=== PATIENT | male | born 1965 | race Caucasian/White ===

== ENCOUNTER 2017-12-13 10:46 | Inpatient (IN) | payer SELFPAY ==
[~2017-12-13] VITALS: Ht 167.6 cm; Wt 57.5 kg
[~2017-12-13 10:46] MED LIST: LORT5TAB PO; Z.0.NO CURRENT MEDS
[2017-12-13] MEDS ORDERED: IOHEXOL 350 MG/ML 10 ML VIAL (for RAD DIAG) IVCONTRAST ONE (10:47)
[2017-12-13 10:51] VITALS: BP 146/68; PULSE 92; RESP 16; TEMP 99; O2SAT 96
[2017-12-13 11:05] VITALS: BP 155/72; PULSE 95; RESP 18; O2SAT 95
[2017-12-13] MEDS ORDERED: SODIUM CHLOR 0.9% 1000 ML INJ 1,000 ML IV SCH (11:17)
--- NOTE | 2017-12-13 11:28 | PD ---
HPI Chief Complaint: General Weakness Time Seen by Provider: 11:06 Travel History International Travel<30 days: No Contact w/Intl Traveler<30days: No Traveled to known affect area: No History of Present Illness HPI 52-year-old male presents emergency department with 1 month history of increased fatigue, nausea, occasional vomiting, and increased somnolence, and generalized weakness. Patient states a 20 pound weight loss over the past month. Patient denies significant fever, chills, changes in bowel or bladder, or significant abdominal pain. Patient is a long-term smoker but denies significant increased cough or hemoptysis. 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 He states history of lymphoma, again treated in [facility]. Patient is somewhat vague in his symptoms. He denies headache or upper respiratory symptoms. He denies increased shortness of breath with exertion. He denies chest pain. He denies hemoptysis. He denies heartburn. He denies significant pain. He has no known drug allergies. PFSH Past Medical History Medical History: Denies Significant Hx Diminished Hearing: No Tetanus Vaccination: Unknown Influenza Vaccination: No Past Surgical History Surgical History: No Previous Surgery Social History Alcohol Use: Yes (have not drank in a couple of months) Tobacco Use: Yes Substance Use: No Allergies-Medications (Allergen,Severity, Reaction): Coded Allergies: No Known Allergies (Verified Adverse Reaction, Unknown, 12/13/17) Reported Meds & Prescriptions Reported Meds & Active Scripts Active No Active Prescriptions or Reported Medications Review of Systems Except as stated in HPI: all other systems reviewed are Neg General / Constitutional: No: Fever, Chills Eyes: No: Visual changes HENT: No: Headaches, Vertigo, Lightheadedness, Sore Throat, Rhinitis, Rhinorrhea, Congestion, Nosebleed, Neck Stiffness, Neck Pain, Dental Difficulties, Earache Cardiovascular: No: Chest Pain or Discomfort, Palpitations, Irregular Rhythm, Tachycardia, Diaphoresis, Syncope, Dyspnea on exertion, Varicosities, Claudication Respiratory: Positive: Cough, No: Shortness of Breath, Wheezing (Chronic), Orthopnea, Hemoptysis, Night Sweats, Pleuritic Pain Gastrointestinal: Positive: Nausea, Vomiting, Loss of Appetite, No: Diarrhea ( See history of present illness), Abdominal Pain, Hematemesis, Hematochezia, Constipation, Changes in Bowel Habits, Indigestion, Dysphagia, Other Genitourinary: No: Urgency, Frequency, Dysuria Musculoskeletal: No: Myalgias, Arthralgias, Limited ROM, Pain Skin: No Rash Neurologic: Positive: Weakness (Increased generalized weakness and increased somnolence for the past month) Psychiatric: No: Depression Endocrine: No: Heat Intolerance, Cold Intolerance, Polyuria, Polydipsia Hematologic/Lymphatic: No: Easy Bruising Physical Exam Narrative GENERAL: Patient appears in no obvious distress. SKIN: Warm and dry. Normal color. Normal turgor. HEAD: Atraumatic. Normocephalic. EYES: Pupils equal and round. No scleral icterus. No injection or drainage. ENT: No nasal bleeding or discharge. Mucous membranes pink and moist. Pharynx is clear. Airways patent. NECK: Trachea midline. Supple and nontender. No palpable thyroid. CARDIOVASCULAR: Regular rate and rhythm. RESPIRATORY: No accessory muscle use. Clear to auscultation. Breath sounds equal bilaterally. GASTROINTESTINAL: Abdomen soft, non-tender, nondistended. Hepatic and splenic margins not palpable. No palpable masses. MUSCULOSKELETAL: Extremities without clubbing, cyanosis, or edema. No obvious deformities. NEUROLOGICAL: Awake and alert. No obvious cranial nerve deficits. Motor grossly within normal limits. Five out of 5 muscle strength in the arms and legs. Normal speech. PSYCHIATRIC: Appropriate mood and affect; insight and judgment normal. Data Data Last Documented VS Vital Signs Date Time Temp Pulse Resp B/P (MAP) Pulse Ox O2 Delivery O2 Flow Rate FiO2 12/13/17 15:07 89 18 146/85 (105) 99 Room Air 12/13/17 10:51 99.0 Orders Orders Complete Blood Count With Diff (12/13/17 11:17) Comprehensive Metabolic Panel (12/13/17 11:17) Lipase (12/13/17 11:17) Prothrombin Time / Inr (Pt) (12/13/17 11:17) Act Partial Throm Time (Ptt) (12/13/17 11:17) Urinalysis - C+S If Indicated (12/13/17 11:17) Iv Access Insert/Monitor (12/13/17 11:17) Ecg Monitoring (12/13/17 11:17) Oximetry (12/13/17 11:17) Sodium Chlor 0.9% 1000 Ml Inj (Ns 1000 M (12/13/17 11:17) Sodium Chloride 0.9% Flush (Ns Flush) (12/13/17 11:30) Electrocardiogram (12/13/17 11:17) Chest, Single Ap (12/13/17 11:17) Magnesium (Mg) (12/13/17 11:17) Thyroid Stimulating Hormone (12/13/17 11:17) Ct Thorax/ Chest W Iv Contrast (12/13/17 ) Iohexol 350 Inj (Omnipaque 350 Inj) (12/13/17 10:47) Ceftriaxone Inj (Rocephin Inj) (12/13/17 15:00) Azithromycin (Zithromax) (12/13/17 15:00) Sputum Culture And Gram Stain (12/13/17 14:50) Labs Laboratory Tests Test 12/13/17 11:40 12/13/17 13:10 White Blood Count 9.9 TH/MM3 Red Blood Count 4.84 MIL/MM3 Hemoglobin 15.6 GM/DL Hematocrit 45.7 % Mean Corpuscular Volume 94.4 FL Mean Corpuscular Hemoglobin 32.3 PG Mean Corpuscular Hemoglobin Concent 34.2 % Red Cell Distribution Width 13.3 % Platelet Count 334 TH/MM3 Mean Platelet Volume 6.6 FL Neutrophils (%) (Auto) 68.7 % Lymphocytes (%) (Auto) 15.7 % Monocytes (%) (Auto) 13.4 % Eosinophils (%) (Auto) 1.2 % Basophils (%) (Auto) 1.0 % Neutrophils # (Auto) 6.8 TH/MM3 Lymphocytes # (Auto) 1.6 TH/MM3 Monocytes # (Auto) 1.3 TH/MM3 Eosinophils # (Auto) 0.1 TH/MM3 Basophils # (Auto) 0.1 TH/MM3 CBC Comment DIFF FINAL Differential Comment Prothrombin Time 12.6 SEC Prothromb Time International Ratio 1.2 RATIO Activated Partial Thromboplast Time 27.1 SEC Blood Urea Nitrogen 9 MG/DL Creatinine 0.75 MG/DL Random Glucose 100 MG/DL Total Protein 9.3 GM/DL Albumin 2.7 GM/DL Calcium Level 8.8 MG/DL Magnesium Level 1.9 MG/DL Alkaline Phosphatase 144 U/L Aspartate Amino Transf (AST/SGOT) 57 U/L Alanine Aminotransferase (ALT/SGPT) 29 U/L Total Bilirubin 1.0 MG/DL Sodium Level 132 MEQ/L Potassium Level 4.2 MEQ/L Chloride Level 97 MEQ/L Carbon Dioxide Level 26.4 MEQ/L Anion Gap 9 MEQ/L Estimat Glomerular Filtration Rate 109 ML/MIN Lipase 278 U/L Thyroid Stimulating Hormone 3rd Gen 4.610 uIU/ML Urine Color YELLOW Urine Turbidity CLEAR Urine pH 5.0 Urine Specific [place] 1.016 Urine Protein NEG mg/dL Urine Glucose (UA) NEG mg/dL Urine Ketones NEG mg/dL Urine Occult Blood NEG Urine Nitrite NEG Urine Bilirubin NEG Urine Urobilinogen 2.0 mg/dL Urine Leukocyte Esterase NEG Urine RBC LESS THAN 1 /hpf Urine WBC 1 /hpf Urine Mucus FEW /lpf Microscopic Urinalysis Comment CULT NOT INDICATED MDM Medical Decision Making Medical Screen Exam Complete: Yes Emergency Medical Condition: Yes Differential Diagnosis Generalized weakness. Weight loss. Type 2 diabetes. Lymphoma. Cancer. Viral syndrome. Narrative Course Patient appears medically stable at time of exam. Labs ordered including CBC, CMP, lipase, magnesium, coagulation studies, TSH, and urinalysis Chest x-ray is ordered. IV access is obtained and the patient is given 1000 mL of normal saline bolus. EKG shows normal sinus rhythm. CBC is unremarkable. Coagulation study shows an INR of 1.2, PT is 12.6 CMP significant for sodium 132, chloride 97. BUN/creatinine are normal. AST slightly elevated 57, alk phos is 144, total protein is 9.3. Albumin is 2.7. Lipase is normal at 278. TSH is elevated at 4.61. Urinalysis is unremarkable. Chest x-ray shows: Small right pleural effusion with associated compressive atelectasis and/or consolidation right lung base, as well as nonspecific patchy nodular opacities located in left upper lobe. These will be further characterized on the schedule CT scan chest. CT of the chest with IV contrast shows: 1. Multiple focal areas of nodularity in the upper lungs bilaterally with some cavitation. Given this bilateral appearance when is becomes sharp for inflammatory/infectious processes. 2. Mild to moderate right pleural effusion. 3. Hepatic steatosis. Patient discussed with Dr. Zhong who recommends admitting the patient for pneumonia, and rule out of TB. 1 g of Rocephin IV and 500 mg azithromycin p.o. was given. Findings and plan is discussed with the patient who agrees for admission. Calls placed to hospitalist for admission. Sputum test is ordered Diagnosis Primary Impression: Pneumonia Qualified Codes: J18.9 - Pneumonia, unspecified organism Additional Impressions: Cavitary lesion of lung Recent weight loss Admitting Information Admitting Physician Requests: Admit Scripts No Active Prescriptions or Reported Meds Condition: Nahid Fernandez Dec 13, 2017 11:28
[2017-12-13] MEDS ORDERED: SODIUM CHLORIDE 0.9% FLUSH 10 ML FLUSH IV FLUSH PRN ×3 (11:30→15:45)
[2017-12-13 11:42] VITALS: O2SAT 99
--- NOTE | 2017-12-13 12:00 | RADRPT ---
EXAM DATE: 12/13/2017 11:43 AM EDT AGE/SEX: 52 years / Male INDICATIONS: Weakness, tired, loss of weight CLINICAL DATA: This is the patient's initial encounter. Patient reports that signs and symptoms have been present for 3 weeks and indicates a pain score of 0/10. MEDICAL/SURGICAL HISTORY: . smokes None. COMPARISON: No prior exams available for comparison. FINDINGS: 2 portable AP views of the chest demonstrate a normal-sized cardiac silhouette. Patchy nodular opacit ies are present in the left upper lobe. There is a right basilar pleural-parenchymal opacity. No pneu mothorax is present. Bones demonstrate no acute finding. CONCLUSION: 1. Small right pleural effusion with associated compressive atelectasis and/or consolidation at the right lung base. 2. Nonspecific patchy nodular opacities are located in the left upper lobe. These can be further wayne racterized on the currently scheduled chest CT. Electronically signed by: Wallace Sherman MD 12/13/2017 11:58 AM EDT
[2017-12-13 12:02] LABS: AUTOMATED NEUTROPHIL # 6.8 TH/MM3 (1.8-7.7); BASOPHIL # 0.1 TH/MM3 (0-0.2); EOSINOPHIL # 0.1 TH/MM3 (0-0.4); EOSINOPHIL % 1.2 % (0.0-4.0); HEMATOCRIT 45.7 % (39.0-51.0); HEMOGLOBIN 15.6 GM/DL (13.0-17.0); LYMPH % 15.7 % (9.0-44.0); LYMPHOCYTE # 1.6 TH/MM3 (1.0-4.8); MEAN CELL VOLUME 94.4 FL (80.0-100.0); MEAN CORPUSCULAR HEMOGLOBIN 32.3 PG (27.0-34.0); MEAN CORPUSCULAR HGB CONC 34.2 % (32.0-36.0); MEAN PLATELET VOLUME 6.6 FL (7.0-11.0); MONO % 13.4 % (0.0-8.0); MONOCYTE # 1.3 TH/MM3 (0-0.9); NEUT % 68.7 % (16.0-70.0); PLATELET COUNT 334 TH/MM3 (150-450); RED BLOOD COUNT 4.84 MIL/MM3 (4.50-5.90); RED CELL DISTRIBUTION WIDTH 13.3 % (11.6-17.2); WHITE BLOOD COUNT 9.9 TH/MM3 (4.0-11.0)
[2017-12-13 12:11] LABS: INTERNATIONAL NORMALIZED RATIO 1.2 RATIO; PROTHROMBIN TIME - PATIENT 12.6 SEC (9.8-11.6)
[2017-12-13 12:25] LABS: ALBUMIN 2.7 GM/DL (3.4-5.0); ALT (GPT) 29 U/L (12-78); AST (GOT) 57 U/L (15-37); BICARBONATE 26.4 MEQ/L (21.0-32.0); BLOOD UREA NITROGEN 9 MG/DL (7-18); CALCIUM 8.8 MG/DL (8.5-10.1); CHLORIDE 97 MEQ/L (98-107); CREATININE 0.75 MG/DL (0.60-1.30); GLOMERULAR FILTRATION RATE 109 ML/MIN (>89); GLUCOSE,RANDOM 100 MG/DL (74-106); MAGNESIUM 1.9 MG/DL (1.5-2.5); SODIUM (NA) 132 MEQ/L (136-145)
[2017-12-13 12:26] LABS: ALKALINE PHOSPHATASE 144 U/L (45-117); TOTAL PROTEIN 9.3 GM/DL (6.4-8.2)
[2017-12-13 13:51] LABS: BILIRUBIN, URINE NEG (NEG); BLOOD, URINE NEG (NEG); GLUCOSE,URINE NEG (NEG); KETONE, URINE NEG (NEG); MUCUS URINE FEW /lpf (OCC); NITRITE,URINE NEG (NEG); URINE COLOR YELLOW (YELLW/STRAW); URINE LEUKOCYTE ESTERASE NEG (NEG)
--- NOTE | 2017-12-13 14:39 | RADRPT ---
EXAM DATE: 12/13/2017 1:56 PM EDT AGE/SEX: 52 years / Male INDICATIONS: Dizzy, nausea vomiting, general weakness, weight loss, effusion seen on x-ray. CLINICAL DATA: This is the patient's initial encounter. Patient reports that signs and symptoms have been present for 2 months and indicates a pain score of 0/10. MEDICAL/SURGICAL HISTORY: None. None. RADIATION DOSE: 4.59 CTDI (mGy) COMPARISON: [facility] [place], CHEST SINGLE AP, 12/13/2017. . TECHNIQUE: Multiple contiguous axial images were obtained through the chest during bolus infusion of 66 ml Omnipaque 350 (iohexol) nonionic water-soluble contrast as a single exam dose. Images were obtained in suspended respiration using multiple row detector helical technique. Using automated exp osure control and adjustment of the mA and/or kV according to patient size, radiation dose was kept a s low as reasonably achievable to obtain optimal diagnostic quality images. DICOM format image data is available electronically for review and comparison. FINDINGS: Lungs: There are multiple masses in the upper lobes bilaterally. Some of these are cavitary. This in cludes a 2.4 cm mass in the posterior right upper lobe and a 1.9 cm mass in the posterior left upper lobe. There is increased density at the subpleural right base likely related to atelectasis. Mediastinum: There are small lymph nodes seen throughout the mediastinum. Enlarged adenopathy is not clearly appreciated. Pleurae: There is a mild to moderate right pleural effusion. No left effusion is seen. Axillae: Unremarkable. Bony Structures: Unremarkable. Miscellaneous: The examination was extended to include the upper abdomen, and both adrenal glands ar e normal in size and configuration. There is hepatic steatosis. There appears to be a possible mild h iatal hernia. CONCLUSION: 1. Multiple focal areas of nodularity in the upper lungs bilaterally with some cavitation. Given thi s bilateral appearance when is becomes sharp for inflammatory/infectious processes. 2. Mild to moderate right pleural effusion. 3. Hepatic steatosis. Electronically signed by: Wallace Sullivan MD 12/13/2017 2:38 PM EDT
[2017-12-13] MEDS ORDERED: AZITHROMYCIN 250 MG TAB PO ONE (15:00)
[2017-12-13] MEDS ORDERED: cefTRIAXone INJ 1,000 MG in SODIUM CHLORIDE 0.9% INJ 100 ML IV ONE (15:00)
[2017-12-13 15:07] VITALS: BP 146/85; PULSE 89; RESP 18; O2SAT 99
[2017-12-13] MEDS ORDERED: NALOXONE HCL 0.4 MG/ML AMP IV PUSH PRN (15:45)
[2017-12-13] MEDS ORDERED: ACETAMINOPHEN 325 MG TAB PO PRN ×2 (15:45)
[2017-12-13] MEDS ORDERED: SENNOSIDES 8.6 MG TAB PO PRN (15:45)
[2017-12-13] MEDS ORDERED: METOCLOPRAMIDE HCL 10 MG/2 ML VIAL IV PUSH PRN (15:45)
[2017-12-13] MEDS ORDERED: BISACODYL 10 MG SUPP RECTAL PRN (15:45)
[2017-12-13] MEDS ORDERED: MAGNESIUM HYDROXIDE SUSP 30 ML CUP PO PRN (15:45)
[2017-12-13] MEDS ORDERED: MORPHINE SULFATE 4 MG/ML INJ IV PUSH PRN ×3 (15:45)
[2017-12-13] MEDS ORDERED: ONDANSETRON ODT 4 MG TAB PO PRN (15:45)
[2017-12-13] MEDS ORDERED: oxyCODONE/ACETAMINOPHEN 10 MG/325 MG TAB PO PRN (15:45)
[2017-12-13] MEDS ORDERED: RESP: ALBUTEROL 2.5 MG/IPRATROPIUM 0.5 MG NEB (PRN) INH (15:45)
[2017-12-13] MEDS ORDERED: oxyCODONE/ACETAMINOPHEN 5 MG/325 MG TAB PO PRN (15:45)
[2017-12-13] MEDS ORDERED: LACTULOSE SYRUP 20 GM/30 ML CUP PO PRN (15:45)
[2017-12-13] MEDS ORDERED: NICOTINE 14 MG/24 HR PATCH T-DERMAL ONE (16:45)
[2017-12-13] MEDS: SODIUM CHLOR 0.9% 1000 ML INJ 1,000 ML IV SCH (16:56)
[2017-12-13] MEDS: ENOXAPARIN SODIUM 40 MG/0.4 ML SYRINGE SQ SCH ×2 (16:59→17:00)
[2017-12-13] MEDS: methylPREDNISolone SOD SUCC 40 MG/1 ML VIAL IV PUSH SCH (16:59)
--- NOTE | 2017-12-13 16:59 | HHI.HP ---
[facility] No Primary Care Physician Admission Diagnosis Pneumonia/Fatigue/Wgt Loss/R/O TB Diagnoses: (1) Tobacco abuse Diagnosis: Secondary (2) Cavitary lesion of lung (3) Recent weight loss Diagnosis: Secondary (4) Pneumonia Diagnosis: Principal Chief Complaint: Generalized weakness Travel History International Travel<30 Days: No Contact w/Intl Traveler <30 Da: No Traveled to Known Affected Are: No History of Present Illness Patient is a 52-year-old gentleman who presented to the emergency department today with a one-month history of increasing fatigue, nausea, occasional vomiting and increased somnolence as well as generalized weakness. Patient states that he had about a 20 pound weight loss over the past month. Patient denies any significant fevers, denies any chills denies any changes in bowel or bladder habit or any significant abdominal pain. Patient states he smokes but denies any significant increased cough or hemoptysis. 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 He states he has a history of lymphoma treated in [facility]. Denies headache or upper respiratory symptoms he denied shortness of breath on exertion denies any chest pain he denies any hemoptysis he denies any heartburn. He denies any significant pain he denies any drug allergies. Patient will be admitted. Will continue on Rocephin and Zithromax as well as Mucinex and DuoNeb's and steroids. Will also start him on acid-fast bacillus sputum's 3 and try and obtain records from some treatment he states in seminal Review of Systems Constitutional: COMPLAINS OF: Fatigue, Weight loss, DENIES: Diaphoretic episodes, Fever, Weight gain, Chills, Dizziness, Change in appetite, Night Sweats Endocrine: DENIES: Heat/cold intolerance, Polydipsia, Polyuria, Polyphagia Eyes: DENIES: Blurred vision, Diplopia, Eye inflammation, Eye pain, Vision loss , Photosensitivity, Double Vision Ears, nose, mouth, throat: DENIES: Tinnitus, Hearing loss, Vertigo, Nasal discharge, Oral lesions, Throat pain, Hoarseness, Ear Pain, Running Nose, Epistaxis, Sinus Pain, Toothache, Odynophagia Respiratory: COMPLAINS OF: Cough, Sputum production, DENIES: Apneas, Snoring, Wheezing, Hemoptysis, Shortness of breath Cardiovascular: DENIES: Chest pain, Palpitations, Syncope, Dyspnea on Exertion , PND, Lower Extremity Edema, Orthopnea, Claudication Gastrointestinal: DENIES: Abdominal pain, Black stools, Bloody stools, Constipation, Diarrhea, Nausea, Vomiting, Difficulty Swallowing, Anorexia Genitourinary: DENIES: Sexual dysfunction, Urinary frequency, Urinary incontinence, Urgency, Hematuria, Dysuria, Nocturia, Penile Discharge, Testicular Pain, Testicular Swelling Musculoskeletal: DENIES: Joint pain, Muscle aches, Stiffness, Joint Swelling, Back pain, Neck pain Integumentary: DENIES: Abnormal pigmentation, Nail changes, Pruritus, Rash Hematologic/lymphatic: DENIES: Bruising, Lymphadenopathy Immunologic/allergic: DENIES: Eczema, Urticaria Neurologic: DENIES: Abnormal gait, Headache, Localized weakness, Paresthesias, Seizures, Speech Problems, Tremor, Poor Balance Psychiatric: DENIES: Anxiety, Confusion, Mood changes, Depression, Hallucinations, Agitation, Suicidal Ideation, Homicidal Ideation, Delusions Except as stated in HPI: all other systems reviewed are Neg Past Family Social History Past Medical History Lymphoma by history History of benzene poisoning Tobacco abuse Past Surgical History Denies Reported Medications Reported Meds & Active Scripts Active No Active Prescriptions or Reported Medications Allergies: Coded Allergies: No Known Allergies (Verified Allergy, Unknown, 12/13/17) Active Ordered Medications Current Medications Sodium Chloride 1,000 ml @ 1,000 mls/hr Q1H IV Last administered on 12/13/17at 11:44; Start 12/13/17 at 11:17; Stop 12/13/17 at 12:16; Status DC Sodium Chloride (NS Flush) 2 ml UNSCH PRN IV FLUSH FLUSH AFTER USING IV ACCESS Last administered on 12/13/17at 15:25; Start 12/13/17 at 11:30; Stop 12/13/17 at 16:14; Status DC Iohexol (Omnipaque 350 Inj) 66 ml STK-MED ONCE IVCONTRAST Last administered on 12/13/17at 10:47; Start 12/13/17 at 10:47; Stop 12/13/17 at 13:51; Status DC Ceftriaxone Sodium 1000 mg/ Sodium Chloride 100 ml @ 200 mls/hr ONCE ONCE IV Last administered on 12/13/17at 15:23; Start 12/13/17 at 15:00; Stop 12/13/17 at 15:29; Status DC Azithromycin (Zithromax) 500 mg ONCE ONCE PO Last administered on 12/13/17at 15 :25; Start 12/13/17 at 15:00; Stop 12/13/17 at 15:01; Status DC Sodium Chloride 1,000 ml @ 100 mls/hr Q10H IV ; Start 12/13/17 at 16:00 Sodium Chloride (NS Flush) 2 ml UNSCH PRN IV FLUSH FLUSH AFTER USING IV ACCESS ; Start 12/13/17 at 15:45; Stop 12/13/17 at 16:14; Status DC Sodium Chloride (NS Flush) 2 ml BID IV FLUSH ; Start 12/13/17 at 21:00; Stop at 21:00; Status DC Acetaminophen (Tylenol) 650 mg Q4H PRN PO TEMP > 100.4; Start 12/13/17 at 15:45 Ondansetron HCl (Zofran Odt) 4 mg Q6H PRN PO NAUSEA OR VOMITING; Start at 15:45 Metoclopramide HCl (Reglan Inj) 5 mg Q6H PRN IV PUSH NAUSEA OR VOMITING; Start 12/13/17 at 15:45 Enoxaparin Sodium (Lovenox Inj) 40 mg Q24H SQ ; Start 12/13/17 at 17:00 Acetaminophen (Tylenol) 650 mg Q6H PRN PO PAIN SCALE 1 TO 2; Start 12/13/17 at 15:45 Oxycodone/ Acetaminophen (Percocet 5-325 Mg) 1 tab Q6H PRN PO PAIN SCALE 3 TO 5; Start 12/13/17 at 15:45 Oxycodone/ Acetaminophen (Percocet 10-325 Mg) 1 tab Q6H PRN PO PAIN SCALE 6 TO 10; Start 12/13/17 at 15:45 Morphine Sulfate (Morphine Inj) 2 mg Q3H PRN IV PUSH Pain 3-5; if unable to take PO; Start 12/13/17 at 15:45 Morphine Sulfate (Morphine Inj) 4 mg Q3H PRN IV PUSH Pain 6-10;if unable to take PO; Start 12/13/17 at 15:45 Morphine Sulfate (Morphine Inj) 4 mg Q3H PRN IV PUSH BREAKTHROUGH PAIN; Start 12/13/17 at 15:45 Naloxone HCl (Narcan Inj) 0.4 mg UNSCH PRN IV PUSH SEE LABEL COMMENTS; Start at 15:45 Senna/Docusate Sodium (Cora-Colace) 1 tab BID PO ; Start 12/13/17 at 21:00 Magnesium Hydroxide (Milk Of Magnesia Liq) 30 ml Q12H PRN PO Mild constipation ; Start 12/13/17 at 15:45 Sennosides (Senokot) 17.2 mg Q12H PRN PO Moderate constipation; Start 12/13/17 at 15:45 Bisacodyl (Dulcolax Supp) 10 mg DAILY PRN RECTAL SEVERE CONSITIPATION; Start at 15:45 Lactulose (Lactulose Liq) 30 ml DAILY PRN PO SEVERE CONSITIPATION; Start at 15:45 Sodium Chloride (NS Flush) 2 ml UNSCH PRN IV FLUSH FLUSH AFTER USING IV ACCESS ; Start 12/13/17 at 15:45 Sodium Chloride (NS Flush) 2 ml BID IV FLUSH ; Start 12/13/17 at 21:00 Ceftriaxone Sodium 1000 mg/ Sodium Chloride 100 ml @ 200 mls/hr Q24H IV ; Start 12/14/17 at 14:00 Azithromycin 500 mg/Sodium Chloride 250 ml @ 250 mls/hr Q24H IV ; Start at 15:00 Tuberculin PPD (Ppd Inj) 5 units ONCE ONCE I-DERMAL ; Start 12/13/17 at 17:00; Stop 12/13/17 at 17:01 Miscellaneous Information (Skin Test Result) 1 Q24H OTHER ; Start 12/14/17 at 17 :00; Stop 12/17/17 at 16:59 Albuterol/ Ipratropium (Duoneb Neb) 1 ampule Q6HR NEB INH ; Start 12/13/17 at 16:00 Albuterol/ Ipratropium (Duoneb Neb) 1 ampule Q4HR NEB PRN INH SHORTNESS OF BREATH; Start 12/13/17 at 15:45 Methylprednisolone Sodium Succinate (SoluMEDROL INJ) 40 mg Q12H IV PUSH ; Start 12/13/17 at 17:00 Guaifenesin (Mucinex Er) 600 mg Q12H PO ; Start 12/13/17 at 18:00 Famotidine (Pepcid) 20 mg BID PO ; Start 12/13/17 at 21:00 Nicotine (Habitrol 14 Mg Patch.24 Hr) 1 patch ONCE ONCE T-DERMAL ; Start at 16:45; Stop 12/13/17 at 16:46; Status UNV Nicotine (Habitrol 14 Mg Patch.24 Hr) 1 patch DAILY T-DERMAL ; Start 12/14/17 at 09:00; Status UNV Miscellaneous Information 1 DAILY T-DERMAL ; Start 12/14/17 at 09:00; Status UNV Family History Denies Social History Smokes about a pack a day has been doing that many years History of alcohol abuse states he has not drank in a couple months Denies any illicits Physical Exam Vital Signs Vital Signs Date Time Temp Pulse Resp B/P (MAP) Pulse Ox O2 Delivery O2 Flow Rate FiO2 12/13/17 15:07 89 18 146/85 (105) 99 Room Air 12/13/17 11:42 99 Room Air 12/13/17 11:05 95 18 155/72 (99) 95 Room Air 12/13/17 11:03 95 Room Air 12/13/17 10:51 99.0 92 16 146/68 (94) 96 Physical Exam GENERAL: This is a well-nourished, well-developed patient, in no apparent distress. SKIN: No rashes, ecchymoses or lesions. Cool and dry. Multiple tattoos HEAD: Atraumatic. Normocephalic. No temporal or scalp tenderness. EYES: Pupils equal round and reactive. Extraocular motions intact. No scleral icterus. No injection or drainage. ENT: Nose without bleeding, purulent drainage or septal hematoma. Throat without erythema, tonsillar hypertrophy or exudate. Uvula midline. Airway patent. NECK: Trachea midline. No JVD or lymphadenopathy. Supple, nontender, no meningeal signs. CARDIOVASCULAR: Regular rate and rhythm without murmurs, gallops, or rubs. RESPIRATORY: Few scattered rhonchi bilaterally. Breath sounds equal bilaterally. No wheezes, rales, or rhonchi. GASTROINTESTINAL: Abdomen soft, non-tender, nondistended. No hepato-splenomegaly , or palpable masses. No guarding. MUSCULOSKELETAL: Extremities without clubbing, cyanosis, or edema. No joint tenderness, effusion, or edema noted. No calf tenderness. Negative Homans sign bilaterally. NEUROLOGICAL: Awake and alert. Cranial nerves II through XII intact. Motor and sensory grossly within normal limits. Five out of 5 muscle strength in all muscle groups. Normal speech. Insight and judgment is good Mood and behavior is somewhat appropriate Laboratory Laboratory Tests Test 12/13/17 11:40 12/13/17 13:10 White Blood Count 9.9 Red Blood Count 4.84 Hemoglobin 15.6 Hematocrit 45.7 Mean Corpuscular Volume 94.4 Mean Corpuscular Hemoglobin 32.3 Mean Corpuscular Hemoglobin Concent 34.2 Red Cell Distribution Width 13.3 Platelet Count 334 Mean Platelet Volume 6.6 Neutrophils (%) (Auto) 68.7 Lymphocytes (%) (Auto) 15.7 Monocytes (%) (Auto) 13.4 Eosinophils (%) (Auto) 1.2 Basophils (%) (Auto) 1.0 Neutrophils # (Auto) 6.8 Lymphocytes # (Auto) 1.6 Monocytes # (Auto) 1.3 Eosinophils # (Auto) 0.1 Basophils # (Auto) 0.1 CBC Comment DIFF FINAL Differential Comment Prothrombin Time 12.6 Prothromb Time International Ratio 1.2 Activated Partial Thromboplast Time 27.1 Blood Urea Nitrogen 9 Creatinine 0.75 Random Glucose 100 Total Protein 9.3 Albumin 2.7 Calcium Level 8.8 Magnesium Level 1.9 Alkaline Phosphatase 144 Aspartate Amino Transf (AST/SGOT) 57 Alanine Aminotransferase (ALT/SGPT) 29 Total Bilirubin 1.0 Sodium Level 132 Potassium Level 4.2 Chloride Level 97 Carbon Dioxide Level 26.4 Anion Gap 9 Estimat Glomerular Filtration Rate 109 Lipase 278 Thyroid Stimulating Hormone 3rd Gen 4.610 Urine Color YELLOW Urine Turbidity CLEAR Urine pH 5.0 Urine Specific [place] 1.016 Urine Protein NEG Urine Glucose (UA) NEG Urine Ketones NEG Urine Occult Blood NEG Urine Nitrite NEG Urine Bilirubin NEG Urine Urobilinogen 2.0 Urine Leukocyte Esterase NEG Urine RBC LESS THAN 1 Urine WBC 1 Urine Mucus FEW Microscopic Urinalysis Comment CULT NOT INDICATED Result Diagram: 12/13/17 1140 12/13/17 1140 Imaging Last Impressions Chest X-Ray 12/13/17 1117 Signed Impressions: CONCLUSION: 1. Small right pleural effusion with associated compressive atelectasis and/or consolidation at the right lung base. 2. Nonspecific patchy nodular opacities are located in the left upper lobe. Th jose d can be further characterized on the currently scheduled chest CT. Chest CT 12/13/17 0000 Signed Impressions: CONCLUSION: 1. Multiple focal areas of nodularity in the upper lungs bilaterally with some cavitation. Given this bilateral appearance when is becomes sharp for inflamma tory/infectious processes. 2. Mild to moderate right pleural effusion. 3. Hepatic steatosis. Caprini VTE Risk Assessment Caprini VTE Risk Assessment: Mod/High Risk (score >= 2) Caprini Risk Assessment Model Point Value = 1 Point Value = 2 Point Value = 3 Point Value = 5 Age 41-60 Minor surgery BMI > 25 kg/m2 Swollen legs Varicose veins or History of unexplained or recurrent spontaneous Oral contraceptives or hormone replacement Sepsis (< 1 month) Serious lung disease, including pneumonia (< 1 month) Abnormal pulmonary function Acute myocardial infarction Congestive heart failure (< 1 month) History of inflammatory bowel disease Medical patient at bed rest Age 61-74 Arthroscopic surgery Major open surgery (> 45 min) Laparoscopic surgery (> 45 min) Malignancy Confined to bed (> 72 hours) Immobilizing plaster cast Central venous access Age >= 75 History of VTE Family history of VTE Factor V Leiden Prothrombin [id number] Lupus anticoagulant Anticardiolipin antibodies Elevated serum homocysteine Heparin-induced thrombocytopenia Other congenital or acquired thrombophilia Stroke (< 1 month) Elective arthroplasty Hip, pelvis, or leg fracture Acute spinal cord injury (< 1 month) Prophylaxis Regimen Total Risk Factor Score Risk Level Prophylaxis Regimen 0-1 Low Early ambulation 2 Moderate Order ONE of the following: *Sequential Compression Device (SCD) *Heparin 5000 units SQ BID 3-4 Higher Order ONE of the following medications: *Heparin 5000 units SQ TID *Enoxaparin/Lovenox 40 mg SQ daily (WT < 150 kg, CrCl > 30 mL/min) *Enoxaparin/Lovenox 30 mg SQ daily (WT < 150 kg, CrCl > 10-29 mL/min) *Enoxaparin/Lovenox 30 mg SQ BID (WT < 150 kg, CrCl > 30 mL/min) AND/OR *Sequential Compression Device (SCD) 5 or more Highest Order ONE of the following medications: *Heparin 5000 units SQ TID (Preferred with Epidurals) *Enoxaparin/Lovenox 40 mg SQ daily (WT < 150 kg, CrCl > 30 mL/min) *Enoxaparin/Lovenox 30 mg SQ daily (WT < 150 kg, CrCl > 10-29 mL/min) *Enoxaparin/Lovenox 30 mg SQ BID (WT < 150 kg, CrCl > 30 mL/min) AND *Sequential Compression Device (SCD) Assessment and Plan Problem List: (1) Tobacco abuse ICD Code: Z72.0 - Tobacco use (2) Recent weight loss ICD Code: R63.4 - Abnormal weight loss Status: Acute (3) Pneumonia ICD Code: J18.9 - Pneumonia, unspecified organism Status: Acute (4) Cavitary lesion of lung ICD Code: J98.4 - Other disorders of lung Status: Acute Assessment and Plan Bilateral upper lobe cavitary lesions in the lungs possible pneumonia versus inflammation versus tuberculosis Continue with acid-fast bacillus is from sputum 3 Continue on Rocephin and Zithromax daily Continue with duo nebs every 6 hours and as needed Continue with Mucinex twice daily Continue with NicoDerm patch Continue with Solu-Medrol Pepcid And Lovenox Oxygen as needed Incentive spirometry Tobacco abuse continue on NicoDerm patch Rule out tuberculosis will get sputum for acid-fast bacillus 3 History of possible tuberculosis in the past try and obtain records Weight loss possibly due to lung disease A.m. labs DVT and GI prophylaxis see orders Code Status Full code Discussed Condition With RN and patient and ER physician Physician Certification 2 Midnight Certification Type: Admission for Inpatient Services Order for Inpatient Services The services are ordered in accordance with Medicare regulations or non- Medicare payer requirements, as applicable. In the case of services not specified as inpatient-only, they are appropriately provided as inpatient services in accordance with the 2-midnight benchmark. Estimated LOS (days): 3 days is the estimated time the patient will need to remain in the hospital, assuming treatment plan goals are met and no additional complications. Post-Hospital Plan: Not yet determined Problem Qualifiers (1) Pneumonia: Qualified Codes: J18.9 - Pneumonia, unspecified organism Kash Devries DO Dec 13, 2017 16:59
[2017-12-13] MEDS ORDERED: TUBERCULIN, PPD 5 UNITS/0.1 ML SYRINGE I-DERMAL ONE (17:00)
[2017-12-13 17:01] VITALS: BP 155/85; PULSE 97; RESP 18; O2SAT 95
[2017-12-13] MEDS ORDERED: DIATRIZOATE MEGLUM/DIATRIZOATE SOD 9 ML CUP PO ONE (18:15)
[2017-12-13] MEDS: RESP: ALBUTEROL 2.5 MG/IPRATROPIUM 0.5 MG NEB (SCH) INH ×2 (18:33→20:13)
[2017-12-13 19:35] VITALS: BP 145/77; PULSE 88; RESP 20; TEMP 98.2; O2SAT 96
[2017-12-13] MEDS ORDERED: SODIUM CHLORIDE 0.9% FLUSH 10 ML FLUSH IV FLUSH SCH (21:00)
[2017-12-13] MEDS: SODIUM CHLORIDE 0.9% FLUSH 10 ML FLUSH IV FLUSH SCH (21:00)
[2017-12-13] MEDS: DOCUSATE SODIUM 50 MG/SENNA 8.6 MG TAB PO SCH (21:00)
[2017-12-13] MEDS: FAMOTIDINE 20 MG TAB PO SCH (22:48)
[2017-12-13] MEDS: guaiFENesin E.R. 600 MG TAB PO SCH (22:48)
[2017-12-14 00:02] VITALS: BP 146/84; PULSE 82; RESP 20; TEMP 98; O2SAT 93
[2017-12-14] MEDS: SODIUM CHLOR 0.9% 1000 ML INJ 1,000 ML IV SCH (02:00)
[2017-12-14] MEDS: RESP: ALBUTEROL 2.5 MG/IPRATROPIUM 0.5 MG NEB (SCH) INH ×2 (03:45→09:43)
[2017-12-14 04:00] VITALS: BP 137/76; PULSE 73; RESP 20; TEMP 98.1; O2SAT 93
[2017-12-14] MEDS: methylPREDNISolone SOD SUCC 40 MG/1 ML VIAL IV PUSH SCH (06:02)
[2017-12-14] MEDS: guaiFENesin E.R. 600 MG TAB PO SCH (06:02)
[2017-12-14 08:00] VITALS: BP 173/82; PULSE 71; RESP 17; TEMP 98.3; O2SAT 96
[2017-12-14] MEDS: SODIUM CHLORIDE 0.9% FLUSH 10 ML FLUSH IV FLUSH SCH (09:00)
[2017-12-14] MEDS: DOCUSATE SODIUM 50 MG/SENNA 8.6 MG TAB PO SCH (09:00)
[2017-12-14] MEDS: FAMOTIDINE 20 MG TAB PO SCH (09:00)
[2017-12-14] MEDS ORDERED: NICOTINE 14 MG/24 HR PATCH T-DERMAL SCH (09:00)
[2017-12-14] MEDS ORDERED: REMOVE OLD PATCH T-DERMAL SCH (09:00)
--- NOTE | 2017-12-14 09:16 | EKG ---
Date Performed: 12/13/2017 Time Performed: 11:55:02 PTAGE: 52 years EKG: Sinus rhythm NORMAL ECG NO PREVIOUS TRACING DOCTOR: Grant Sánchez Interpretating Date/Time 12/14/2017 09:13:51
--- NOTE | 2017-12-14 10:24 | HHI.PR ---
Subjective Remarks Patient is a 52-year-old gentleman who presented to the emergency department today with a one-month history of increasing fatigue, nausea, occasional vomiting and increased somnolence as well as generalized weakness. Patient states that he had about a 20 pound weight loss over the past month. Patient denies any significant fevers, denies any chills denies any changes in bowel or bladder habit or any significant abdominal pain. Patient states he smokes but denies any significant increased cough or hemoptysis. 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 He states he has a history of lymphoma treated in [facility]. Denies headache or upper respiratory symptoms he denied shortness of breath on exertion denies any chest pain he denies any hemoptysis he denies any heartburn. He denies any significant pain he denies any drug allergies. Patient will be admitted. Will continue on Rocephin and Zithromax as well as Mucinex and DuoNeb's and steroids. Will also start him on acid-fast bacillus sputum's 3 and try and obtain records from some treatment he states in [facility] AND IN [place] 12-14 THREATENING TO LEAVE AMA REFUSED LABS TODAY NOT TAKING ALL THE MEDICATIONS HERE PRESCRIBED MAY LEAVE AMA- SINCE I WILL NOT CLEAR HIM FOR DISCHARGE WITH THE CONCERN ABOUT TB DUE TO CAVITARY LESIONS IN LUNGS DECIDED TO LEAVE AMA AFTER BEING SEEN Objective Vitals Vital Signs Date Time Temp Pulse Resp B/P (MAP) Pulse Ox O2 Delivery O2 Flow Rate FiO2 12/14/17 08:00 98.3 71 17 173/82 (112) 96 12/14/17 04:00 98.1 73 20 137/76 (96) 93 12/14/17 00:02 98.0 82 20 146/84 (104) 93 12/13/17 20:13 21 12/13/17 19:35 98.2 88 20 145/77 (99) 96 12/13/17 17:01 97 18 155/85 (108) 95 Room Air 12/13/17 15:07 89 18 146/85 (105) 99 Room Air 12/13/17 11:42 99 Room Air 12/13/17 11:05 95 18 155/72 (99) 95 Room Air 12/13/17 11:03 95 Room Air 12/13/17 10:51 99.0 92 16 146/68 (94) 96 I/O 12/13/17 12/13/17 12/13/17 12/14/17 12/14/17 12/14/17 07:00 15:00 23:00 07:00 15:00 23:00 Intake Total 1100 ml 240 ml Balance 1100 ml 240 ml Intake Oral 240 ml IV Total 1100 ml # Voids 3 # Bowel Movements 1 Result Diagram: 12/13/17 1140 12/13/17 1140 Other Results Laboratory Tests Test 12/13/17 11:40 12/13/17 13:10 White Blood Count 9.9 TH/MM3 Red Blood Count 4.84 MIL/MM3 Hemoglobin 15.6 GM/DL Hematocrit 45.7 % Mean Corpuscular Volume 94.4 FL Mean Corpuscular Hemoglobin 32.3 PG Mean Corpuscular Hemoglobin Concent 34.2 % Red Cell Distribution Width 13.3 % Platelet Count 334 TH/MM3 Mean Platelet Volume 6.6 FL Neutrophils (%) (Auto) 68.7 % Lymphocytes (%) (Auto) 15.7 % Monocytes (%) (Auto) 13.4 % Eosinophils (%) (Auto) 1.2 % Basophils (%) (Auto) 1.0 % Neutrophils # (Auto) 6.8 TH/MM3 Lymphocytes # (Auto) 1.6 TH/MM3 Monocytes # (Auto) 1.3 TH/MM3 Eosinophils # (Auto) 0.1 TH/MM3 Basophils # (Auto) 0.1 TH/MM3 CBC Comment DIFF FINAL Differential Comment Prothrombin Time 12.6 SEC Prothromb Time International Ratio 1.2 RATIO Activated Partial Thromboplast Time 27.1 SEC Blood Urea Nitrogen 9 MG/DL Creatinine 0.75 MG/DL Random Glucose 100 MG/DL Total Protein 9.3 GM/DL Albumin 2.7 GM/DL Calcium Level 8.8 MG/DL Magnesium Level 1.9 MG/DL Alkaline Phosphatase 144 U/L Aspartate Amino Transf (AST/SGOT) 57 U/L Alanine Aminotransferase (ALT/SGPT) 29 U/L Total Bilirubin 1.0 MG/DL Sodium Level 132 MEQ/L Potassium Level 4.2 MEQ/L Chloride Level 97 MEQ/L Carbon Dioxide Level 26.4 MEQ/L Anion Gap 9 MEQ/L Estimat Glomerular Filtration Rate 109 ML/MIN Lipase 278 U/L Thyroid Stimulating Hormone 3rd Gen 4.610 uIU/ML Urine Color YELLOW Urine Turbidity CLEAR Urine pH 5.0 Urine Specific [place] 1.016 Urine Protein NEG mg/dL Urine Glucose (UA) NEG mg/dL Urine Ketones NEG mg/dL Urine Occult Blood NEG Urine Nitrite NEG Urine Bilirubin NEG Urine Urobilinogen 2.0 mg/dL Urine Leukocyte Esterase NEG Urine RBC LESS THAN 1 /hpf Urine WBC 1 /hpf Urine Mucus FEW /lpf Microscopic Urinalysis Comment CULT NOT INDICATED Imaging Last Impressions Chest X-Ray 12/13/17 1117 Signed Impressions: CONCLUSION: 1. Small right pleural effusion with associated compressive atelectasis and/or consolidation at the right lung base. 2. Nonspecific patchy nodular opacities are located in the left upper lobe. Th jose d can be further characterized on the currently scheduled chest CT. Chest CT 12/13/17 0000 Signed Impressions: CONCLUSION: 1. Multiple focal areas of nodularity in the upper lungs bilaterally with some cavitation. Given this bilateral appearance when is becomes sharp for inflamma tory/infectious processes. 2. Mild to moderate right pleural effusion. 3. Hepatic steatosis. Objective Remarks GENERAL: Awake and alert oriented 3 talkative but not so cooperative may leave AGAINST MEDICAL ADVICE SKIN: Warm and dry. Multiple tattoos HEAD: Atraumatic. Normocephalic. EYES: Pupils equal and round. No scleral icterus. No injection or drainage. Extraocular muscles intact ENT: No nasal bleeding or discharge. Mucous membranes pink and moist. Supple NECK: Trachea midline. No JVD. CARDIOVASCULAR: Regular rate and rhythm. S1-S2 no S3 or S4 RESPIRATORY: No accessory muscle use. Some scattered rhonchi's bilaterally- breath sounds equal bilaterally. GASTROINTESTINAL: Abdomen soft, non-tender, nondistended. Hepatic and splenic margins not palpable. MUSCULOSKELETAL: Extremities without clubbing, cyanosis, or edema. No obvious deformities. NEUROLOGICAL: Awake and alert. No obvious cranial nerve deficits. Motor grossly within normal limits. Five out of 5 muscle strength in the arms and legs. Normal speech. PSYCHIATRIC: INAppropriate mood and affect; insight and judgment ABnormal. Procedures NONE Medications and IVs Current Medications Sodium Chloride 1,000 ml @ 1,000 mls/hr Q1H IV Last administered on 12/13/17at 11:44; Start 12/13/17 at 11:17; Stop 12/13/17 at 12:16; Status DC Sodium Chloride (NS Flush) 2 ml UNSCH PRN IV FLUSH FLUSH AFTER USING IV ACCESS Last administered on 12/13/17at 15:25; Start 12/13/17 at 11:30; Stop 12/13/17 at 16:14; Status DC Iohexol (Omnipaque 350 Inj) 66 ml STK-MED ONCE IVCONTRAST Last administered on 12/13/17at 10:47; Start 12/13/17 at 10:47; Stop 12/13/17 at 13:51; Status DC Ceftriaxone Sodium 1000 mg/ Sodium Chloride 100 ml @ 200 mls/hr ONCE ONCE IV Last administered on 12/13/17at 15:23; Start 12/13/17 at 15:00; Stop 12/13/17 at 15:29; Status DC Azithromycin (Zithromax) 500 mg ONCE ONCE PO Last administered on 12/13/17at 15 :25; Start 12/13/17 at 15:00; Stop 12/13/17 at 15:01; Status DC Sodium Chloride 1,000 ml @ 100 mls/hr Q10H IV Last administered on 12/14/17at 02:00; Start 12/13/17 at 16:00 Sodium Chloride (NS Flush) 2 ml UNSCH PRN IV FLUSH FLUSH AFTER USING IV ACCESS ; Start 12/13/17 at 15:45; Stop 12/13/17 at 16:14; Status DC Sodium Chloride (NS Flush) 2 ml BID IV FLUSH ; Start 12/13/17 at 21:00; Stop at 21:00; Status DC Acetaminophen (Tylenol) 650 mg Q4H PRN PO TEMP > 100.4; Start 12/13/17 at 15:45 Ondansetron HCl (Zofran Odt) 4 mg Q6H PRN PO NAUSEA OR VOMITING Last administered on 12/13/17at 16:56; Start 12/13/17 at 15:45 Metoclopramide HCl (Reglan Inj) 5 mg Q6H PRN IV PUSH NAUSEA OR VOMITING; Start 12/13/17 at 15:45 Enoxaparin Sodium (Lovenox Inj) 40 mg Q24H SQ ; Start 12/13/17 at 17:00 Acetaminophen (Tylenol) 650 mg Q6H PRN PO PAIN SCALE 1 TO 2; Start 12/13/17 at 15:45 Oxycodone/ Acetaminophen (Percocet 5-325 Mg) 1 tab Q6H PRN PO PAIN SCALE 3 TO 5; Start 12/13/17 at 15:45 Oxycodone/ Acetaminophen (Percocet 10-325 Mg) 1 tab Q6H PRN PO PAIN SCALE 6 TO 10; Start 12/13/17 at 15:45 Morphine Sulfate (Morphine Inj) 2 mg Q3H PRN IV PUSH Pain 3-5; if unable to take PO; Start 12/13/17 at 15:45 Morphine Sulfate (Morphine Inj) 4 mg Q3H PRN IV PUSH Pain 6-10;if unable to take PO; Start 12/13/17 at 15:45 Morphine Sulfate (Morphine Inj) 4 mg Q3H PRN IV PUSH BREAKTHROUGH PAIN; Start 12/13/17 at 15:45 Naloxone HCl (Narcan Inj) 0.4 mg UNSCH PRN IV PUSH SEE LABEL COMMENTS; Start at 15:45 Senna/Docusate Sodium (Cora-Colace) 1 tab BID PO ; Start 12/13/17 at 21:00 Magnesium Hydroxide (Milk Of Magnesia Liq) 30 ml Q12H PRN PO Mild constipation ; Start 12/13/17 at 15:45 Sennosides (Senokot) 17.2 mg Q12H PRN PO Moderate constipation; Start 12/13/17 at 15:45 Bisacodyl (Dulcolax Supp) 10 mg DAILY PRN RECTAL SEVERE CONSITIPATION; Start at 15:45 Lactulose (Lactulose Liq) 30 ml DAILY PRN PO SEVERE CONSITIPATION; Start at 15:45 Sodium Chloride (NS Flush) 2 ml UNSCH PRN IV FLUSH FLUSH AFTER USING IV ACCESS ; Start 12/13/17 at 15:45 Sodium Chloride (NS Flush) 2 ml BID IV FLUSH ; Start 12/13/17 at 21:00 Ceftriaxone Sodium 1000 mg/ Sodium Chloride 100 ml @ 200 mls/hr Q24H IV ; Start 12/14/17 at 14:00 Azithromycin 500 mg/Sodium Chloride 250 ml @ 250 mls/hr Q24H IV ; Start at 15:00 Tuberculin PPD (Ppd Inj) 5 units ONCE ONCE I-DERMAL ; Start 12/13/17 at 17:00; Stop 12/13/17 at 17:01; Status DC Miscellaneous Information (Skin Test Result) 1 Q24H OTHER ; Start 12/14/17 at 17 :00; Stop 12/17/17 at 16:59 Albuterol/ Ipratropium (Duoneb Neb) 1 ampule Q6HR NEB INH ; Start 12/13/17 at 16:00 Albuterol/ Ipratropium (Duoneb Neb) 1 ampule Q4HR NEB PRN INH SHORTNESS OF BREATH; Start 12/13/17 at 15:45 Methylprednisolone Sodium Succinate (SoluMEDROL INJ) 40 mg Q12H IV PUSH Last administered on 12/14/17at 06:02; Start 12/13/17 at 17:00 Guaifenesin (Mucinex Er) 600 mg Q12H PO Last administered on 12/14/17at 06:02; Start 12/13/17 at 18:00 Famotidine (Pepcid) 20 mg BID PO Last administered on 12/13/17at 22:48; Start at 21:00 Nicotine (Habitrol 14 Mg Patch.24 Hr) 1 patch ONCE ONCE T-DERMAL Last administered on 12/13/17at 18:35; Start 12/13/17 at 16:45; Stop 12/13/17 at 17:25 ; Status DC Nicotine (Habitrol 14 Mg Patch.24 Hr) 1 patch DAILY T-DERMAL Last administered on 12/14/17at 10:02; Start 12/14/17 at 09:00 Miscellaneous Information 1 DAILY T-DERMAL Last administered on 12/14/17at 09:00 ; Start 12/14/17 at 09:00 Diatrizoate Meglum/ Diatrizoate Sod ( Gastroview Liq) 18 ml ONCE ONCE PO ; Start 12/13/17 at 18:15; Stop 12/13/17 at 18:16; Status DC A/P Problem List: (1) Tobacco abuse ICD Code: Z72.0 - Tobacco use (2) Recent weight loss ICD Code: R63.4 - Abnormal weight loss Status: Acute (3) Pneumonia ICD Code: J18.9 - Pneumonia, unspecified organism Status: Acute (4) Cavitary lesion of lung ICD Code: J98.4 - Other disorders of lung Status: Acute Assessment and Plan Bilateral upper lobe cavitary lesions in the lungs possible pneumonia versus inflammation versus tuberculosis Continue with acid-fast bacillus is from sputum 3 Continue on Rocephin and Zithromax daily Continue with duo nebs every 6 hours and as needed Continue with Mucinex twice daily Continue with NicoDerm patch Continue with Solu-Medrol Pepcid And Lovenox Oxygen as needed Incentive spirometry Tobacco abuse continue on NicoDerm patch Rule out tuberculosis will get sputum for acid-fast bacillus 3 History of possible tuberculosis in the past try and obtain records Weight loss possibly due to lung disease A.m. labs DVT and GI prophylaxis see orders Threatening to go AGAINST MEDICAL ADVICE Still in TB isolation has given no sputum YET Discussed with RN and patient Discharge Planning Patient LEFT AGAINST MEDICAL ADVICE today Problem Qualifiers (1) Pneumonia: Qualified Codes: J18.9 - Pneumonia, unspecified organism Kash Devries DO Dec 14, 2017 10:24
--- NOTE | 2017-12-14 12:14 | PD.AMA ---
Against Medical Advice Note Diagnosis: (1) Pneumonia (2) Tuberculosis (3) Tobacco abuse Discharge Disposition: Against Medical Advice Pt Condition on Discharge: Guarded Recommended Treatment Course FOLLOW UP WITH PCP AND HEALTH DEPARTMENT REGARDING POSSIBLE TB TREATMENT AMA Statement Patient Wallace GardnerJr has decided to leave the hospital against medical advice. This patient has the capacity to refuse care and understands the risks of leaving, including permanent disability and/or , and has had an opportunity to ask questions about his condition. The patient has been informed that he may return for care at any time, and follow up has been arranged/advised. Kash Devries DO Dec 14, 2017 12:14
--- NOTE | 2017-12-14 12:15 | HHI.DS ---
Discharge Summary Admission Date Dec 13, 2017 at 15:41 Discharge Date: Dec 14, 2017 Admitting Diagnosis Pneumonia/Fatigue/Wgt Loss/R/O TB (1) Tobacco abuse ICD Code: Z72.0 - Tobacco use Diagnosis: Principal (2) Recent weight loss ICD Code: R63.4 - Abnormal weight loss Diagnosis: Principal Status: Acute (3) Pneumonia ICD Code: J18.9 - Pneumonia, unspecified organism Diagnosis: Principal Status: Acute (4) Cavitary lesion of lung ICD Code: J98.4 - Other disorders of lung Diagnosis: Principal Status: Acute Procedures NONE Brief History - From Admission Patient is a 52-year-old gentleman who presented to the emergency department today with a one-month history of increasing fatigue, nausea, occasional vomiting and increased somnolence as well as generalized weakness. Patient states that he had about a 20 pound weight loss over the past month. Patient denies any significant fevers, denies any chills denies any changes in bowel or bladder habit or any significant abdominal pain. Patient states he smokes but denies any significant increased cough or hemoptysis. 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 He states he has a history of lymphoma treated in [facility]. Denies headache or upper respiratory symptoms he denied shortness of breath on exertion denies any chest pain he denies any hemoptysis he denies any heartburn. He denies any significant pain he denies any drug allergies. Patient will be admitted. Will continue on Rocephin and Zithromax as well as Mucinex and DuoNeb's and steroids. Will also start him on acid-fast bacillus sputum's 3 and try and obtain records from some treatment he states in [place] CBC/BMP: 12/13/17 1140 12/13/17 1140 Significant Findings Laboratory Tests Test 12/13/17 11:40 12/13/17 13:10 Mean Platelet Volume 6.6 FL (7.0-11.0) Monocytes (%) (Auto) 13.4 % (0.0-8.0) Monocytes # (Auto) 1.3 TH/MM3 (0-0.9) Prothrombin Time 12.6 SEC (9.8-11.6) Total Protein 9.3 GM/DL (6.4-8.2) Albumin 2.7 GM/DL (3.4-5.0) Alkaline Phosphatase 144 U/L (45-117) Aspartate Amino Transf (AST/SGOT) 57 U/L (15-37) Sodium Level 132 MEQ/L (136-145) Chloride Level 97 MEQ/L (98-107) Thyroid Stimulating Hormone 3rd Gen 4.610 uIU/ML (0.358-3.740) Urine Urobilinogen 2.0 mg/dL (LESS THAN 2) Urine Mucus FEW /lpf (OCC) Imaging Last Impressions Chest X-Ray 12/13/17 1117 Signed Impressions: CONCLUSION: 1. Small right pleural effusion with associated compressive atelectasis and/or consolidation at the right lung base. 2. Nonspecific patchy nodular opacities are located in the left upper lobe. Th jose d can be further characterized on the currently scheduled chest CT. Chest CT 12/13/17 0000 Signed Impressions: CONCLUSION: 1. Multiple focal areas of nodularity in the upper lungs bilaterally with some cavitation. Given this bilateral appearance when is becomes sharp for inflamma tory/infectious processes. 2. Mild to moderate right pleural effusion. 3. Hepatic steatosis. PE at Discharge GENERAL: Awake and alert oriented 3 talkative but not so cooperative may leave AGAINST MEDICAL ADVICE SKIN: Warm and dry. Multiple tattoos HEAD: Atraumatic. Normocephalic. EYES: Pupils equal and round. No scleral icterus. No injection or drainage. Extraocular muscles intact ENT: No nasal bleeding or discharge. Mucous membranes pink and moist. Supple NECK: Trachea midline. No JVD. CARDIOVASCULAR: Regular rate and rhythm. S1-S2 no S3 or S4 RESPIRATORY: No accessory muscle use. Some scattered rhonchi's bilaterally- breath sounds equal bilaterally. GASTROINTESTINAL: Abdomen soft, non-tender, nondistended. Hepatic and splenic margins not palpable. MUSCULOSKELETAL: Extremities without clubbing, cyanosis, or edema. No obvious deformities. NEUROLOGICAL: Awake and alert. No obvious cranial nerve deficits. Motor grossly within normal limits. Five out of 5 muscle strength in the arms and legs. Normal speech. PSYCHIATRIC: INAppropriate mood and affect; insight and judgment ABnormal. Hospital Course Patient is a 52-year-old gentleman who presented to the emergency department today with a one-month history of increasing fatigue, nausea, occasional vomiting and increased somnolence as well as generalized weakness. Patient states that he had about a 20 pound weight loss over the past month. Patient denies any significant fevers, denies any chills denies any changes in bowel or bladder habit or any significant abdominal pain. Patient states he smokes but denies any significant increased cough or hemoptysis. 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 He states he has a history of lymphoma treated in [facility]. Denies headache or upper respiratory symptoms he denied shortness of breath on exertion denies any chest pain he denies any hemoptysis he denies any heartburn. He denies any significant pain he denies any drug allergies. Patient will be admitted. Will continue on Rocephin and Zithromax as well as Mucinex and DuoNeb's and steroids. Will also start him on acid-fast bacillus sputum's 3 and try and obtain records from some treatment he states in [facility] AND IN [place] 12-14 THREATENING TO LEAVE AMA REFUSED LABS TODAY NOT TAKING ALL THE MEDICATIONS HERE PRESCRIBED MAY LEAVE AMA- SINCE I WILL NOT CLEAR HIM FOR DISCHARGE WITH THE CONCERN ABOUT TB DUE TO CAVITARY LESIONS IN LUNGS LEFT AMA Pt Condition on Discharge: Guarded Discharge Disposition: Discharge Home (LEFT AMA) Discharge Time: <= 30 minutes Discharge Instructions DIET: Follow Instructions for: As Tolerated, No Restrictions Speech Therapy-Diet Recommends: Regular Additional Diet Instructions: LEFT AMA Other Activity Instructions: Kash Blount DO Dec 14, 2017 12:15
[2017-12-14] MEDS ORDERED: cefTRIAXone INJ 1,000 MG in SODIUM CHLORIDE 0.9% INJ 100 ML IV SCH (14:00)
[2017-12-14] MEDS ORDERED: AZITHROMYCIN INJ 500 MG in SODIUM CHLOR 0.9% 250 ML INJ 250 ML IV SCH (15:00)
[2017-12-14] MEDS ORDERED: SKIN TEST RESULT OTHER SCH (17:00)
--- NOTE | 2017-12-14 22:40 | HHI.PR ---
Addendum to Inpatient Note Addendum Reason: Additional Documentation Additional Information Attempted to contact patient to review mycobacterial TB culture, no answer, message was left on patient's voicemail to contact [facility] for evaluation of test results. Justyna Montilla Dec 14, 2017 22:40
== END 2017-12-14 11:51 | disposition left against medical advice (07) | DRG 195 ==
LOC: NEPC 10:46 → NEDA 15:41 → N04A 19:43
PROVIDERS: ADMIT Hospitalist; ATTEND Hospitalist
DX: J18.9 Pneumonia, unspecified organism (principal); K76.0 Fatty (change of) liver, not elsewhere classified; J98.4 Other disorders of lung; R63.4 Abnormal weight loss; Z72.0 Tobacco use; Z68.20 Body mass index [BMI] 20.0-20.9, adult
CPT/HCPCS: 71045; 71260; 80053; 81001; 82948; 83690; 83735; 84443; 85025; 85610; 85730; 87015; 87040; 87070; 87116; 87205; 87206; 87449; 87556; 87798; 93005; 96361; 96365; J0696; J1650; J2920; J7030; Q9967